=== PATIENT | female | born 1940 | race Caucasian/White ===

== ENCOUNTER → 2020-07-09 | Outpatient (CLI) | payer MEDICARE | LOC: KOH-I 07-01 15:00 → EXRD 15:00 | DX: R22.42 Localized swelling, mass and lump, left lower limb (principal) | CPT/HCPCS: 76882 ==

== ENCOUNTER → 2020-07-22 | Outpatient (CLI) | payer OTHER | LOC: MRI 07-19 10:45 | DX: R22.42 Localized swelling, mass and lump, left lower limb (principal) | CPT/HCPCS: 36415; 73720; 82565; 84520; A9577; J2405 ==

== ENCOUNTER → 2020-11-22 | Outpatient (CLI) | payer OTHER | LOC: KOH-I 15:34 | DX: S99.929A Unspecified injury of unspecified foot, initial encounter (principal) | CPT/HCPCS: 73630 ==